=== PATIENT | female | born 1980 | race Hispanic/Latino ===

== ENCOUNTER 2017-08-18 21:17 | Emergency (ER) | payer BC, SELFPAY ==
[2017-08-18 21:56] LABS: Urine Blood 2+ (NEG); Urine Glucose NEGATIVE (NEG); Urine Protein NEGATIVE (NEG); Urine pH 7.5 (5.0-7.0)
--- NOTE | 2017-08-18 21:59 | ER ---
Nurse's Notes [facility] Name: Elena Valadez Age: 36 yrs Sex: Female : 1980 Arrival Date: 08/18/2017 Time: 21:22 Bed 23 Private MD: Brandon Mckoy Diagnosis: Dysuria;Acute cystitis with hematuria Presentation: 08/18 21:32 Presenting complaint: Patient states: she is having burning with urination which bb started today has had UTIs in the past. Transition of care: patient was not received from another setting of care. Onset of symptoms was August 18, 2017. Risk Assessment: Do you want to hurt yourself or someone else? Patient reports no desire to harm self or others. Initial Sepsis Screen: Does the patient meet any 2 criteria? No. Patient's initial sepsis screen is negative. Does the patient have a suspected source of infection? No. Patient's initial sepsis screen is negative. Care prior to arrival: None. 21:32 Method Of Arrival: Ambulatory bb 21:32 Acuity: ROXIE 4 bb MOHEL: 21:33 LMP 08/16/2017 bb Historical: - Allergies: 21:33 No Known Allergies; bb - Home Meds: 21:33 None [Active]; bb - PMHx: 21:33 None; bb - PSHx: 21:33 Cholecystectomy; bb - Immunization history:: Adult Immunizations up to date. - Social history:: Smoking status: Patient/guardian denies using tobacco. - Ebola Screening: : No symptoms or risks identified at this time. Screenin:53 Abuse screen: Denies threats or abuse. Nutritional screening: No deficits noted. jd3 Tuberculosis screening: No symptoms or risk factors identified. Fall Risk Ambulatory Aid- None/Bed Rest/Nurse Assist (0 pts). Gait- Normal/Bed Rest/Wheelchair (0 pts) Mental Status- Oriented to own ability (0 pts). Total Arevalo Fall Scale indicates No Risk (0-24 pts). Assessment: 21:51 General: Appears uncomfortable, Behavior is calm, cooperative, appropriate for age. jd3 Pain: Complains of pain in suprapubic area Quality of pain is described as aching. Neuro: Level of Consciousness is awake, alert, obeys commands, Oriented to person, place, time, situation, Appropriate for age. Cardiovascular: Capillary refill < 3 seconds Patient's skin is warm and dry. Respiratory: Airway is patent Respiratory effort is even, unlabored, Respiratory pattern is regular, symmetrical. GI: No signs and/or symptoms were reported involving the gastrointestinal system. : Urine is clear, Reports burning with urination, since yesterday urinary frequency. EENT: No signs and/or symptoms were reported regarding the EENT system. Derm: Skin is intact, Skin is dry, Skin is normal, Skin temperature is warm. Musculoskeletal: Circulation, motion, and sensation intact. Range of motion: intact in all extremities. 22:07 Reassessment: No changes from previously documented assessment. pt verbalized bb understanding of and agrees to plan of care discharge instructions given pt ambulated with steady gait to exit. Vital Signs: 21:33 BP 111 / 70; Pulse 73; Resp 16 S; Temp 97.7(O); Pulse Ox 99% on R/A; Weight 71.21 kg bb (R); Height 5 ft. 6 in. (167.64 cm) (R); Pain 7/10; 21:33 Body Mass Index 25.34 (71.21 kg, 167.64 cm) bb ED Course: 21:22 Patient arrived in ED. am2 21:22 Brandon Mckoy DO is Private Physician. am2 21:33 Triage completed. bb 21:33 Arm band placed on right wrist. Patient placed in an exam room, on a stretcher. bb 21:36 Guillermo Montero, MAME is Primary Nurse. jd3 21:52 Sree Vargas PA is PHCP. jr8 21:52 Lucas Pena MD is Attending Physician. jr8 21:53 Patient has correct armband on for positive identification. Bed in low position. Call jd3 light in reach. Side rails up X 1. 21:57 Brandon Mckoy DO is Referral Physician. jr8 22:07 No provider procedures requiring assistance completed. Patient did not have IV access bb during this emergency room visit. Administered Medications: 22:06 Drug: Nitrofurantoin 100 mg Route: PO; bb 22:06 Follow up: Response: Medication administered at discharge. bb 22:06 Drug: Pyridium 100 mg Route: PO; bb 22:06 Follow up: Response: Medication administered at discharge. bb Outcome: 21:58 Discharge ordered by MD. jr8 22:07 Discharged to home ambulatory. jesica 22:07 Condition: stable 22:07 Discharge instructions given to patient, Instructed on discharge instructions, follow up and referral plans. medication usage, Demonstrated understanding of instructions, follow-up care, medications, Prescriptions given X 2. 22:08 Patient left the ED. jesica Signatures: Micheline Davidson RN RN Sree Zapata PA PA jr8 Ivana Monk am2 Guillermo Montero RN RN jd3
--- NOTE | 2017-08-18 21:59 | EDPHYS ---
Physician Documentation [facility] Name: Elena Valadez Age: 36 yrs Sex: Female : 1980 Arrival Date: 08/18/2017 Time: 21:22 Bed 23 Private MD: Ean [facility] ED Physician Lucas Pena HPI: 08/18 21:56 This 36 yrs old Female presents to ER via Ambulatory with complaints of Pain jr8 With Urination. 21:56 The patient presents with urinary symptoms, dysuria, frequency, urgency. Onset: The jr8 symptoms/episode began/occurred acutely, today. Modifying factors: The symptoms are alleviated by nothing, the symptoms are aggravated by urinating. Associated signs and symptoms: The patient has no apparent associated signs or symptoms. Severity of symptoms: At their worst the symptoms were mild, in the emergency department the symptoms are unchanged. The patient has not experienced similar symptoms in the past. The patient has not recently seen a physician. 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 - Social history:: Smoking status: Patient/guardian denies using tobacco. - Ebola Screening: : No symptoms or risks identified at this time. ROS: 21:56 Eyes: Negative for injury, pain, redness, and discharge, ENT: Negative for injury, jr8 pain, and discharge, Neck: Negative for injury, pain, and swelling, Cardiovascular: Negative for chest pain, palpitations, and edema, Respiratory: Negative for shortness of breath, cough, wheezing, and pleuritic chest pain, Abdomen/GI: Negative for abdominal pain, nausea, vomiting, diarrhea, and constipation, Back: Negative for injury and pain, MS/Extremity: Negative for injury and deformity, Skin: Negative for injury, rash, and discoloration, Neuro: Negative for headache, weakness, numbness, tingling, and seizure. 21:56 : Positive for urinary symptoms, burning with urination, Negative for vaginal bleeding, vaginal discharge, vaginal itching. Exam: 21:56 Cardiovascular: Regular rate and rhythm with a normal S1 and S2. No gallops, murmurs, jr8 or rubs. Normal PMI, no JVD. No pulse deficits. Respiratory: Lungs have equal breath sounds bilaterally, clear to auscultation and percussion. No rales, rhonchi or wheezes noted. No increased work of breathing, no retractions or nasal flaring. Back: No spinal tenderness. No costovertebral tenderness. Full range of motion. Skin: Warm, dry with normal turgor. Normal color with no rashes, no lesions, and no evidence of cellulitis. MS/ Extremity: Pulses equal, no cyanosis. Neurovascular intact. Full, normal range of motion. Neuro: Awake and alert, GCS 15, oriented to person, place, time, and situation. Cranial nerves II-XII grossly intact. Motor strength 5/5 in all extremities. Sensory grossly intact. Cerebellar exam normal. Normal gait. 21:56 Abdomen/GI: Inspection: abdomen appears normal, Bowel sounds: active, all quadrants, Palpation: soft, in all quadrants, mild abdominal tenderness, in the suprapubic area, mass, is not appreciated, rebound tenderness, is not appreciated, voluntary guarding, is not appreciated, involuntary guarding, is not appreciated, no appreciated organomegaly, Indicators: McBurney's point is not tender, Iyer's sign is negative, Rovsing's sign is negative, Liver: no appreciated palpable abnormalities, tenderness, is not appreciated. Vital Signs: 21:33 BP 111 / 70; Pulse 73; Resp 16 S; Temp 97.7(O); Pulse Ox 99% on R/A; Weight 71.21 kg bb (R); Height 5 ft. 6 in. (167.64 cm) (R); Pain 7/10; 21:33 Body Mass Index 25.34 (71.21 kg, 167.64 cm) bb MDM: 21:52 Patient medically screened. [facility] 21:55 Data reviewed: vital signs, nurses notes, lab test result(s), and as a result, I will [facility] discharge patient. Data interpreted: Pulse oximetry: on room air is 99 %. Interpretation: normal. Counseling: I had a detailed discussion with the patient and/or guardian regarding: the historical points, exam findings, and any diagnostic results supporting the discharge/admit diagnosis, lab results, the need for outpatient follow up, a family practitioner, to return to the emergency department if symptoms worsen or persist or if there are any questions or concerns that arise at home. 08/18 21:52 Order name: Urine Dipstick--Ancillary (enter results); Complete Time: 21:58 mt 08/18 21:52 Order name: Urine --Ancillary (enter results); Complete Time: 21:58 mt 08/18 21:54 Order name: Urine Microscopic Only jd3 08/18 21:54 Order name: Urine Microscopic Only jr8 08/18 21:54 Order name: Urine Dipstick-Ancillary (obtain specimen); Complete Time: 21:54 jd3 08/18 21:54 Order name: Urine Test (obtain specimen); Complete Time: 21:54 jd3 Administered Medications: 22:06 Drug: Nitrofurantoin 100 mg Route: PO; bb 22:06 Follow up: Response: Medication administered at discharge. bb 22:06 Drug: Pyridium 100 mg Route: PO; jesica 22:06 Follow up: Response: Medication administered at discharge. jesica Disposition: 08/19 20:33 Co-signature as Attending Physician, Lucas Pena MD I agree with the assessment and tw4 plan of care. Disposition: 08/18/17 21:58 Discharged to Home. Impression: Dysuria, Acute cystitis with hematuria. - Condition is Stable. - Discharge Instructions: Dysuria, Urinary Tract Infection. - Prescriptions for Pyridium 200 mg Oral Tablet - take 1 tablet by ORAL route every 8 hours for 3 days; 9 tablet. Macrobid 100 mg Oral Capsule - take 1 capsule by ORAL route every 12 hours for 7 days; 14 capsule. - Medication Reconciliation Form, Thank You Letter, Antibiotic Education, Prescription Opioid Use form. - Follow up: Brandon Mckoy DO; When: 1 week; Reason: Recheck today's complaints, Continuance of care, Re-evaluation by your physician. - Problem is new. - Symptoms have improved. Signatures: Dispatcher [employer] Micheline Peralta RN RN bb Roszak, Josh, PA PA jr8 Guillermo Montero RN RN jd3 Wadley, Terrence, MD MD tw4 Corrections: (The following items were deleted from the chart) 08/18 22:08 21:58 08/18/2017 21:58 Discharged to Home. Impression: Dysuria; Acute cystitis with bb hematuria. Condition is Stable. Forms are Medication Reconciliation Form, Thank You Letter, Antibiotic Education, Prescription Opioid Use. Follow up: Brandon Mckoy; When: 1 week; Reason: Recheck today's complaints, Continuance of care, Re-evaluation by your physician. Problem is new. Symptoms have improved. jr8
[2017-08-18] MEDS ORDERED: PHENAZOPYRIDINE 100MG TAB PO ONE (22:05)
[2017-08-18] MEDS ORDERED: NITROFURAN MACRO 100 MG CAP PO ONE (22:06)
[2017-08-18 22:12] VITALS: BP 111/70; TEMP 97.7; O2SAT 99
[2017-08-18 22:22] LABS: Urine Bacteria <20 /HPF (<20); Urine Culture Reflex Order REFLEXED
== END 2017-08-18 22:08 | disposition home or self-care (01) ==
LOC: ER 21:17
DX: N30.01 Acute cystitis with hematuria (principal)
CPT/HCPCS: 81003; 81015; 81025; 87086; 87088; 99283

== ENCOUNTER 2018-11-08 20:46 | Emergency (ER) | payer BC ==
[2018-11-08] MEDS ORDERED: NA CHLORIDE 0.9% 1,000 ML ONE ×2 (21:34→21:54)
[2018-11-08 21:56] LABS: Absolute Lymphocytes (CBC) 2.4 K/uL (0.7-4.9); Basophils % 0.3 % (0-1.3); Hematocrit 39.2 % (36.0-45.0); Lymphocytes % 27.7 % (15.3-44.8); RBC Red Blood Cell Count 4.53 M/uL (3.86-4.86)
[2018-11-08 22:05] LABS: Urine Blood NEGATIVE (NEG); Urine Glucose NEGATIVE (NEG); Urine Protein NEGATIVE (NEG)
[2018-11-08 22:08] LABS: Urine Bacteria <20 /HPF (<20); Urine Culture Reflex Order REFLEXED; Urine RBC <5 /HPF (NONE SEEN)
[2018-11-08 22:15] LABS: Albumin 3.8 g/dL (3.4-5.0); Bilirubin Direct 0.1 mg/dL (0-0.2); Bilirubin Total 0.2 mg/dL (0.2-1.0); Potassium 3.4 mmol/L (3.5-5.1); Protein, Total 7.4 g/dL (6.4-8.2)
--- NOTE | 2018-11-08 23:24 | ER ---
Nurse's Notes [facility] Name: Elena Valadez Age: 38 yrs Sex: Female : 1980 Arrival Date: 11/08/2018 Time: 20:48 Bed 25 Private MD: Diagnosis: Urinary tract infection, site not specified Presentation: 11/08 21:03 Presenting complaint: Patient states: Suprapubic pain, some pain with urination, some la1 nausea. Transition of care: patient was not received from another setting of care. Onset of symptoms was November 08, 2018. Risk Assessment: Do you want to hurt yourself or someone else? Patient reports no desire to harm self or others. Initial Sepsis Screen: Does the patient meet any 2 criteria? No. Patient's initial sepsis screen is negative. Does the patient have a suspected source of infection? No. Patient's initial sepsis screen is negative. Care prior to arrival: None. 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 - Social history:: Smoking status: Patient/guardian denies using tobacco. - Ebola Screening: : No symptoms or risks identified at this time. Screenin:01 Abuse screen: Denies threats or abuse. Denies injuries from another. Nutritional mg2 screening: No deficits noted. Tuberculosis screening: No symptoms or risk factors identified. Fall Risk IV access (20 points). Assessment: 22:01 General: Appears in no apparent distress. comfortable, Behavior is calm, cooperative. mg2 Pain: Complains of pain in suprapubic area Pain does not radiate. Pain currently is 5 out of 10 on a pain scale. Quality of pain is described as aching, Pain began gradually, Is intermittent. Neuro: Level of Consciousness is awake, alert, obeys commands, Oriented to person, place, time, situation. Cardiovascular: Capillary refill < 3 seconds Patient's skin is warm and dry. Respiratory: Airway is patent Respiratory effort is even, unlabored, Respiratory pattern is regular, symmetrical. GI: Reports nausea. : Reports pain in suprapubic area. EENT: No signs and/or symptoms were reported regarding the EENT system. Derm: Skin is intact, is healthy with good turgor, Skin is pink, warm \T\ dry. normal. Musculoskeletal: Circulation, motion, and sensation intact. Capillary refill < 3 seconds. 22:03 Reassessment: patient sent to ct scan via wheelchair. mg2 Vital Signs: 21:02 BP 118 / 70; Pulse 74; Resp 16; Temp 97.4; Pulse Ox 100% on R/A; Weight 74.84 kg; la1 Height 5 ft. 6 in. (167.64 cm); 22:55 BP 102 / 99; Pulse 95; Resp 18; Pulse Ox 100% on R/A; mg2 23:36 BP 110 / 70; Pulse 90; Resp 18; Temp 98; Pulse Ox 100% on R/A; mg2 21:02 Body Mass Index 26.63 (74.84 kg, 167.64 cm) la1 ED Course: 20:48 Patient arrived in ED. ds1 21:02 Arm band placed on right wrist. la1 21:03 Triage completed. la1 21:11 Justin Charles NP is PHCP. pm1 21:11 Lucas Pena MD is Attending Physician. pm1 21:26 Diogo Nichols, MAME is Primary Nurse. mg2 21:30 Initial lab(s) drawn, by me, sent to lab. Inserted saline lock: 20 gauge in left bb antecubital area, using aseptic technique. Blood collected. 22:02 Patient has correct armband on for positive identification. Pulse ox on. NIBP on. Door mg2 closed. Warm blanket given. 22:06 CT completed. Patient tolerated procedure well. Patient moved back from CT. mw3 22:20 CT Abd/Pelvis - IV Contrast Only In Process Unspecified. EDMS 22:56 No provider procedures requiring assistance completed. mg2 23:37 IV discontinued, intact, bleeding controlled, No redness/swelling at site. Pressure mg2 dressing applied. Administered Medications: 22:01 Drug: NS 0.9% 1000 ml Route: IV; Rate: 1000 ml; Site: left antecubital; mg2 23:35 Follow up: Response: No adverse reaction; IV Status: Completed infusion; IV Intake: mg2 1000ml 23:35 Drug: Rocephin - (cefTRIAXone) 1 grams Route: IVPB; Infused Over: 30 mins; Site: left mg2 antecubital; 23:35 Follow up: Response: No adverse reaction; Medication administered at discharge.; IV mg2 Status: Completed infusion Intake: 23:35 IV: 1000ml; Total: 1000ml. mg2 Outcome: 23:23 Discharge ordered by . pm1 23:37 Discharged to home ambulatory, with family. mg2 23:37 Condition: stable 23:37 Discharge instructions given to patient, family, Instructed on discharge instructions, follow up and referral plans. medication usage, Demonstrated understanding of instructions, follow-up care, medications, Prescriptions given X 2. 23:46 Patient left the ED. mg2 Signatures: Dispatcher [employer] EDRI Isaura Eaton ds1 Micheline Davidson RN RN bb Jace Wallace RN RN la1 Justin Charles, RESIDENTIAL NURSE RESIDENTIAL NURSE pm1 Diogo Nichols RN RN mg2 Priya Roa mw3
--- NOTE | 2018-11-08 23:24 | EDPHYS ---
Physician Documentation [facility] Name: Elena Valadez Age: 38 yrs Sex: Female : 1980 Arrival Date: 11/08/2018 Time: 20:48 Bed 25 Private MD: ED Physician Lucas Pena HPI: 11/08 23:21 This 38 yrs old Female presents to ER via Ambulatory with complaints of Pelvic pm1 Pain. 23:21 The patient presents with abdominal pain suprapubic. Onset: The symptoms/episode pm1 began/occurred yesterday. The symptoms do not radiate. Associated signs and symptoms: Pertinent positives: dysuria, Pertinent negatives: nausea, vomiting, and diarrhea, chest pain, fever, shortness of breath. The symptoms are described as sharp. Modifying factors: The symptoms are alleviated by nothing, the symptoms are aggravated by urinating. Severity of pain: in the emergency department the pain is actually worse. The patient has not experienced similar symptoms in the past. The patient has not recently seen a physician. 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 - Social history:: Smoking status: Patient/guardian denies using tobacco. - Ebola Screening: : No symptoms or risks identified at this time. ROS: 21:32 Constitutional: Negative for fever, chills, and weight loss, Eyes: Negative for injury, pm1 pain, redness, and discharge, ENT: Negative for injury, pain, and discharge, Neck: Negative for injury, pain, and swelling, Cardiovascular: Negative for chest pain, palpitations, and edema, Respiratory: Negative for shortness of breath, cough, wheezing, and pleuritic chest pain. 21:32 Back: Negative for injury and pain. 21:32 MS/Extremity: Negative for injury and deformity, Skin: Negative for injury, rash, and discoloration, Neuro: Negative for headache, weakness, numbness, tingling, and seizure. 21:32 Abdomen/GI: Positive for abdominal pain, of the suprapubic area, Negative for nausea, vomiting, and diarrhea, constipation. 21:32 : Positive for burning with urination, Negative for vaginal bleeding, vaginal discharge. Exam: 21:32 Constitutional: This is a well developed, well nourished patient who is awake, alert, pm1 and in no acute distress. Head/Face: Normocephalic, atraumatic. Neck: Trachea midline, no thyromegaly or masses palpated, and no cervical lymphadenopathy. Supple, full range of motion without nuchal rigidity, or vertebral point tenderness. No Meningismus. Chest/axilla: Normal chest wall appearance and motion. Nontender with no deformity. No lesions are appreciated. Cardiovascular: Regular rate and rhythm with a normal S1 and S2. No gallops, murmurs, or rubs. Normal PMI, no JVD. No pulse deficits. Respiratory: Lungs have equal breath sounds bilaterally, clear to auscultation and percussion. No rales, rhonchi or wheezes noted. No increased work of breathing, no retractions or nasal flaring. 21:32 Back: No spinal tenderness. No costovertebral tenderness. Full range of motion. Skin: Warm, dry with normal turgor. Normal color with no rashes, no lesions, and no evidence of cellulitis. MS/ Extremity: Pulses equal, no cyanosis. Neurovascular intact. Full, normal range of motion. 21:32 Abdomen/GI: Inspection: abdomen appears normal, Bowel sounds: normal, Palpation: soft, mild abdominal tenderness, in the suprapubic area, mass, is not appreciated, rebound tenderness, is not appreciated. 21:32 Neuro: Orientation: is normal, Motor: is normal, moves all fours. Vital Signs: 21:02 BP 118 / 70; Pulse 74; Resp 16; Temp 97.4; Pulse Ox 100% on R/A; Weight 74.84 kg; la1 Height 5 ft. 6 in. (167.64 cm); 22:55 BP 102 / 99; Pulse 95; Resp 18; Pulse Ox 100% on R/A; mg2 23:36 BP 110 / 70; Pulse 90; Resp 18; Temp 98; Pulse Ox 100% on R/A; mg2 21:02 Body Mass Index 26.63 (74.84 kg, 167.64 cm) la1 MDM: 21:12 Patient medically screened. pm1 23:22 Data reviewed: vital signs. Data interpreted: Pulse oximetry: on room air is 100 %. pm1 Interpretation: normal. Counseling: I had a detailed discussion with the patient and/or guardian regarding: the historical points, exam findings, and any diagnostic results supporting the discharge/admit diagnosis, lab results, radiology results, the need for outpatient follow up, to return to the emergency department if symptoms worsen or persist or if there are any questions or concerns that arise at home. 11/08 21:18 Order name: Urine Dipstick--Ancillary (enter results); Complete Time: 22:08 em1 11/08 21:18 Order name: Urine --Ancillary (enter results); Complete Time: 22:08 em1 11/08 21:21 Order name: Basic Metabolic Panel; Complete Time: 22:20 pm11/08 21:21 Order name: CBC with Diff; Complete Time: 22:08 pm11/08 21:21 Order name: Creatinine for Radiology; Complete Time: 22:20 pm11/08 21:21 Order name: Hepatic Function; Complete Time: 22:20 pm11/08 21:21 Order name: Lipase; Complete Time: 22:20 pm11/08 21:21 Order name: IV Saline Lock; Complete Time: 21:39 pm11/08 21:21 Order name: Labs collected and sent; Complete Time: 21:39 pm11/08 21:21 Order name: CT Abd/Pelvis - IV Contrast Only pm11/08 21:21 Order name: Urine Microscopic Only; Complete Time: 22:20 pm11/08 22:23 Order name: Urine Culture EDMS Administered Medications: 22:01 Drug: NS 0.9% 1000 ml Route: IV; Rate: 1000 ml; Site: left antecubital; mg2 23:35 Follow up: Response: No adverse reaction; IV Status: Completed infusion; IV Intake: mg2 1000ml 23:35 Drug: Rocephin - (cefTRIAXone) 1 grams Route: IVPB; Infused Over: 30 mins; Site: left mg2 antecubital; 23:35 Follow up: Response: No adverse reaction; Medication administered at discharge.; IV mg2 Status: Completed infusion Disposition: 11/09 06:06 Co-signature as Attending Physician, Lucas Pena MD I agree with the assessment and 4 plan of care. Disposition: 09/22/19 23:23 Discharged to Home. Impression: Urinary tract infection, site not specified. - Condition is Stable. - Discharge Instructions: Ovarian Cyst, Urinary Tract Infection, Adult. - Prescriptions for Macrobid 100 mg Oral Capsule - take 1 capsule by ORAL route every 12 hours for 10 days; 20 capsule. Tylenol- Codeine #3 300-30 mg Oral Tablet - take 2 tablets by ORAL route every 6 hours As needed; 20 tablet. - Medication Reconciliation Form, Thank You Letter, Antibiotic Education, Prescription Opioid Use form. - Follow up: Emergency Department; When: As needed; Reason: Worsening of condition. Follow up: Private Physician; When: 2 - 3 days; Reason: Recheck today's complaints, Continuance of care, Re-evaluation by your physician. - Problem is new. - Symptoms have improved. Signatures: Dispatcher [employer] EDMS Jace Wallace RN RN la1 Justin Charles, DIRECTOR SPORTS DIRECTOR SPORTS pm1 uLcas Pena MD MD tw4 Diogo Nichols RN RN mg2 Corrections: (The following items were deleted from the chart) 11/08 23:46 23:23 11/08/2018 23:23 Discharged to Home. Impression: Urinary tract infection, site mg2 not specified. Condition is Stable. Forms are Medication Reconciliation Form, Thank You Letter, Antibiotic Education, Prescription Opioid Use. Follow up: Emergency Department; When: As needed; Reason: Worsening of condition. Follow up: Private Physician; When: 2 - 3 days; Reason: Recheck today's complaints, Continuance of care, Re-evaluation by your physician. Problem is new. Symptoms have improved. pm1
[2018-11-08] MEDS ORDERED: CEFTRIAXONE/SWI 1gm 1 GM/10 ML SYR ONE (23:30)
[2018-11-09 01:12] VITALS: BP 110/70; TEMP 98; O2SAT 100
--- NOTE | 2018-11-09 09:43 | RAD REPORT ---
EXAM DESCRIPTION: Abdomen Pelvis W Contrast CLINICAL HISTORY: 38 years Female Dysuria, suprapubic pain TECHNIQUE: Contiguous axial images obtained through the abdomen and pelvis following intravenous con trast administration. Coronal and sagittal reformatted images provided. This CT exam was performed according to our departmental dose-optimization program, which includes on e or more of the following dose reduction techniques: automated exposure control, adjustment of the m A and/or kV according to patient size, and/or use of iterative reconstruction technique. COMPARISON: No prior exams provided for comparison. FINDINGS: Examination somewhat degraded by patient motion. Both kidneys are normal without evidence of hydronephrosis or pyelonephritis. No focal renal lesion o n either side. The urinary bladder is mildly distended without focal lesion. There is a 2.0 cm right ovarian cyst with trace free fluid in the cul-de-sac. Normal left ovary and u terus. Mild biliary prominence likely related to prior cholecystectomy. The liver, spleen, pancreas, and adrenal glands are normal. No visualized bowel inflammation, obstruction, free intraperitoneal air, or ascites. No abdominal aortic aneurysm or retroperitoneal hemorrhage. No acute osseous abnormality. IMPRESSION: Normal kidneys. Mild distention of the urinary bladder without focal lesion. 2 cm right ovarian cyst and trace free fluid in the cul-de-sac or physiologic in appearance and do no t require follow-up. Electronically signed by: Ailyn Conn MD 11/08/2018 10:44 PM CDT Due to temporary technical issues with the PACS/Fluency reporting system, reports are being signed by the in house radiologist as a courtesy to ensure prompt reporting. The interpreting radiologist is f ully responsible for the content of the report.
== END 2018-11-08 23:46 | disposition home or self-care (01) ==
LOC: ER 20:46
DX: N39.0 Urinary tract infection, site not specified (principal)
CPT/HCPCS: 87088; 85025; 87086; 80048; 36415; 81025; 80076; 83690; 74177; Q9967; J0696; J7030 ×2; 81003; 81015; 96361; 96374; 99284